=== PATIENT | male | born 1975 | race Caucasian/White ===

== ENCOUNTER 2024-06-12 16:50 | Emergency (ER) | payer BC, OTHER ==
[2024-06-12 16:54] VITALS: RESP 18
--- NOTE | 2024-06-12 17:05 | ED ---
Abdominal Pain HPI - General Source: patient, RN notes reviewed, old records reviewed Mode of arrival: ambulatory Limitations: no limitations - History of Present Illness MD Complaint: abdominal pain -: days(s) Location: RLQ Radiation: RLQ Migration to: RLQ Severity scale (1-10): 7 Quality: stabbing, sharp Improves With: nothing Worsens With: nothing Associated Symptoms: nausea Treatments Prior to Arrival: other (0) <David Abdi - Last Filed: 06/12/24 19:30> <David Nelson - Last Filed: 06/13/24 16:01> - General Chief Complaint: Abdominal Pain Stated Complaint: Abd pain Time Seen by Provider: 06/12/24 17:03 - History of Present Illness Initial Comments: This is a 48 male to the ER for evaluation of abdominal pain. Patient comes in with periumbilical right lower quadrant abdominal pain severe. Patient having symptoms that started last night persistently worse unable to have a bowel movement. Positive nausea no vomiting has not eaten was able to drink water today. He does feel feverish and sweaty (David Abdi) - Related Data Home Medications Medication Instructions Recorded Confirmed Albuterol Inhaler [Ventolin Hfa 2 puff INHALATION RT-Q4H PRN 06/12/24 06/12/24 Inhaler] Albuterol Nebulized [Ventolin 2.5 mg INHALATION RT-Q4H PRN 06/12/24 06/12/24 Nebulized] Atorvastatin [Lipitor] 20 mg PO DAILY 06/12/24 06/12/24 Losartan/Hydrochlorothiazide 1 tab PO DAILY 06/12/24 06/12/24 [Losartan-Hctz 100-25 mg Tab] Metoprolol Succinate (ER) [Toprol 50 mg PO DAILY 06/12/24 06/12/24 Xl] Previous Rx's Medication Instructions Recorded Levofloxacin [Levaquin] 750 mg PO DAILY #10 tab 06/13/24 metroNIDAZOLE [Flagyl] 500 mg PO TID #30 tab 06/13/24 Allergies Allergy/AdvReac Type Severity Reaction Status Date / Time vancomycin AdvReac Severe Rash/Hives- Verified 06/12/24 19:33 Itch all over hydrocodone bitartrate AdvReac Nausea Verified 06/12/24 19:33 [From [facility]] Penicillins AdvReac Sob-Throat Verified 06/12/24 19:33 closed Review of Systems ROS Other: All systems not noted in ROS Statement are negative. <David Abdi - Last Filed: 06/12/24 19:30> ROS Other: All systems not noted in ROS Statement are negative. <David Nelson - Last Filed: 06/13/24 16:01> ROS Statement: Those systems with pertinent positive or pertinent negative responses have been documented in the HPI. Past Medical History Past Medical History: Hyperlipidemia, Hypertension, Musculoskeletal Disorder, Sleep Apnea/CPAP/BIPAP Additional Past Medical History / Comment(s): SLEEP APNEA BUT DOESN'T USE C-PAP OR BI-PAP, CHRONIC BACK PAIN- HX SPINA BIFIDA- MISSING A VERTEBRAE, RECENT FX LEFT WRIST-FELL OFF FLAT BED TRUCK & HEARD WRIST SNAP- HAS SHOULDER SLING IMMOBILIZER ON WITH SPLINT History of Any Multi-Drug Resistant Organisms: None Reported Past Surgical History: Orthopedic Surgery Additional Past Surgical History / Comment(s): left arm surgery Past Anesthesia/Blood Transfusion Reactions: Postoperative Nausea & Vomiting (PONV) Past Psychological History: Anxiety Smoking Status: Never smoker Past Alcohol Use History: Occasional Past Drug Use History: None Reported - Past Family History Mother Family Medical History: Diabetes Mellitus, Hyperlipidemia, Hypertension Father Family Medical History: Diabetes Mellitus, Hyperlipidemia, Hypertension <David Abdi - Last Filed: 06/12/24 19:30> General Exam Limitations: no limitations General appearance: alert, in no apparent distress Head exam: Present: atraumatic, normocephalic, normal inspection Eye exam: Present: normal appearance, PERRL, EOMI. Absent: scleral icterus, conjunctival injection, periorbital swelling ENT exam: Present: normal exam, mucous membranes moist Neck exam: Present: normal inspection. Absent: tenderness, meningismus, lymphadenopathy Respiratory exam: Present: normal lung sounds bilaterally. Absent: respiratory distress, wheezes, rales, rhonchi, stridor Cardiovascular Exam: Present: regular rate, normal rhythm, normal heart sounds. Absent: systolic murmur, diastolic murmur, rubs, gallop, clicks GI/Abdominal exam: Present: soft, normal bowel sounds. Absent: distended, tenderness, guarding, rebound, rigid Extremities exam: Present: normal inspection, full ROM, normal capillary refill. Absent: tenderness, pedal edema, joint swelling, calf tenderness Back exam: Present: normal inspection Neurological exam: Present: alert, oriented X3, CN II-XII intact Psychiatric exam: Present: normal affect, normal mood Skin exam: Present: warm, dry, intact, normal color. Absent: rash <David Abdi - Last Filed: 06/12/24 19:30> Course <JinDavid B - Last Filed: 06/12/24 19:30> Vital Signs 06/12/24 06/12/24 06/12/24 16:51 18:15 19:41 Temperature 98.8 F 98.4 F Pulse Rate 113 H 89 78 Respiratory 18 18 18 Rate Blood Pressure 151/83 123/69 124/75 O2 Sat by Pulse 99 97 100 Oximetry - Reevaluation(s) Reevaluation #1: 06/12/24 17:40 Medical records reviewed (XochitlDavid osuna) Reevaluation #4: Was pt. sent in by a medical professional or institution (, PA, [facility], urgent care, hospital, or care home...) When possible be specific @ -no Did you speak to anyone other than the patient for history (EMS, parent, family, police, friend...)? What history was obtained from this source @ -no Did you review nursing and triage notes (agree or disagree)? Why? @ -agree Are old charts reviewed (outside hosp., previous admission, EMS record, old EKG, old radiological studies, urgent care reports/EKG's, care home records)? Report findings @ -yes Differential Diagnosis (chest pain, altered mental status, abdominal pain women, abdominal pain men, vaginal bleeding, weakness, fever, dyspnea, syncope, headache, dizziness, GI bleed, back pain, seizure, CVA, palpatations, mental health, musculoskeletal)? @ -prior EKG interpreted by me (3pts min.). @ -yes X-rays interpreted by me (1pt min.). @ -yes negative for acute disease CT interpreted by me (1pt min.). @ -no U/S interpreted by me (1pt. min.). @ -no What testing was considered but not performed or refused? (CT, X-rays, U/S, labs)? Why? @ -none What meds were considered but not given or refused? Why? @ -none Did you discuss the management of the patient with other professionals (professionals i.e. , PA, [facility], lab, RT, psych nurse, social media analyst, jack prizer, teacher, ethics officer, child welfare caseworker)? Give summary @ -no Was smoking cessation discussed for >3mins.? @ -no Was critical care preformed (if so, how long)? @ -no Were there social determinants of health that impacted care today? How? (Homelessness, low income, unemployed, alcoholism, drug addiction, tr ansportation, low edu. Level, literacy, decrease access to med. care, halfway, rehab)? @ -none Was there de-escalation of care discussed even if they declined (Discuss DNR or withdrawal of care, Hospice)? DNR status @ -no What co-morbidities impacted this encounter? (DM, HTN, Smoking, COPD, CAD, Canc er, CVA, ARF, Chemo, Hep., AIDS, mental health diagnosis, sleep apnea, morbid obesity)? @ -none Was patient admitted / discharged? Hospital course, mention meds given and route, prescriptions, significant lab abnormalities, going to OR and other pertinent info. @ - Undiagnosed new problem with uncertain prognosis? @ -no Drug Therapy requiring intensive monitoring for toxicity (Heparin, Nitro, Insulin, Cardizem)? @ -no Were any procedures done? @ -no Diagnosis/symptom? @ - Acute, or Chronic, or Acute on Chronic? @ -Acute Uncomplicated (without systemic symptoms) or Complicated (systemic symptoms)? @ -Complicated Side effects of treatment? @ -no Exacerbation, Progression, or Severe Exacerbation? @ -exacerbation Poses a threat to life or bodily function? How? (Chest pain, [place], [place], pneumonia, PE, COPD, DKA, ARF, appy, cholecystitis, CVA, Diverticulitis, Homicidal, Suicidal, threat to staff... and all critical care pts) @ -yes (David Abdi) Reevaluation #5: Differential Abdominal Pain Men: Appendicitis, cholecystitis, diverticulosis, ischemic bowel, pancreatitis, hepatitis, UTI, gastroenteritis, AAA, incarcerated hernia, bowel obstruction, constipation, inflammatory bowel, hepatitis, peptic ulcer disease, splenic infarction, perforated viscus, testicular torsion, this is not meant to be an all-inclusive list (David Abdi) Medical Decision Making - Lab Data Result diagrams: 06/12/24 17:35 06/12/24 17:35 <David Abdi - Last Filed: 06/12/24 19:30> - Lab Data Result diagrams: 06/12/24 17:35 06/12/24 17:35 <David Nelson - Last Filed: 06/13/24 16:01> - Lab Data Lab Results 06/12/24 06/12/24 06/12/24 Range/Units 17:35 17:35 17:35 WBC 14.40 H (4.50-10.00) 10*3/uL RBC 4.70 (4.40-5.60) 10*6/uL Hgb 16.0 (13.0-17.0) g/dL Hct 43.8 (39.6-50.0) % MCV 93.2 (80.0-97.0) fL MCH 34.0 H (27.0-32.0) pg MCHC 36.5 (32.0-37.0) g/dL Plt Count 247 (140-440) 10*3/uL MPV 10.1 (9.5-12.2) fL Immature Gran % (Auto) 0.3 % Neutrophils % 90.1 % Lymphocytes % 7.2 % Monocytes % 1.9 % Eosinophils % 0.1 % Basophils % 0.4 % Immature Gran # 0.05 H (0.00-0.04) 10*3/uL Neutrophils # 12.96 H (1.80-7.70) 10*3/uL Lymphocytes # 1.04 (0.90-5.00) 10*3/uL Monocytes # 0.28 (0.20-1.00) 10*3/uL Eosinophils # 0.01 L (0.04-0.35) 10*3/uL Basophils # 0.06 (0.00-0.10) 10*3/uL PT 10.9 (10.0-12.5) sec INR 1.0 (<1.2) APTT 24.5 (22.0-30.0) sec Sodium 131 L (137-145) mmol/L Potassium 4.8 (3.5-5.1) mmol/L Chloride 96 L (98-107) mmol/L Carbon Dioxide 23 (22-30) mmol/L Anion Gap 12 mmol/L BUN 27 H (9-20) mg/dL Creatinine 0.67 (0.66-1.25) mg/dL Est GFR (CKD-EPI)AfAm >90 (>60 ml/min/1.73 sqM) Est GFR (CKD-EPI)NonAf >90 (>60 ml/min/1.73 sqM) Glucose 171 H (74-99) mg/dL Plasma Lactic Acid Hemant (0.7-2.0) mmol/L Calcium 9.8 (8.4-10.2) mg/dL Total Bilirubin 2.2 H (0.2-1.3) mg/dL AST 63 H (17-59) U/L ALT 83 H (4-49) U/L Alkaline Phosphatase 81 (38-126) U/L Total Protein 8.7 H (6.3-8.2) g/dL Albumin 4.9 (3.5-5.0) g/dL Amylase 53 (30-110) U/L Lipase 165 (23-300) U/L 06/12/24 Range/Units 17:35 WBC (4.50-10.00) 10*3/uL RBC (4.40-5.60) 10*6/uL Hgb (13.0-17.0) g/dL Hct (39.6-50.0) % MCV (80.0-97.0) fL MCH (27.0-32.0) pg MCHC (32.0-37.0) g/dL Plt Count (140-440) 10*3/uL MPV (9.5-12.2) fL Immature Gran % (Auto) % Neutrophils % % Lymphocytes % % Monocytes % % Eosinophils % % Basophils % % Immature Gran # (0.00-0.04) 10*3/uL Neutrophils # (1.80-7.70) 10*3/uL Lymphocytes # (0.90-5.00) 10*3/uL Monocytes # (0.20-1.00) 10*3/uL Eosinophils # (0.04-0.35) 10*3/uL Basophils # (0.00-0.10) 10*3/uL PT (10.0-12.5) sec INR (<1.2) APTT (22.0-30.0) sec Sodium (137-145) mmol/L Potassium (3.5-5.1) mmol/L Chloride (98-107) mmol/L Carbon Dioxide (22-30) mmol/L Anion Gap mmol/L BUN (9-20) mg/dL Creatinine (0.66-1.25) mg/dL Est GFR (CKD-EPI)AfAm (>60 ml/min/1.73 sqM) Est GFR (CKD-EPI)NonAf (>60 ml/min/1.73 sqM) Glucose (74-99) mg/dL Plasma Lactic Acid Hemant 1.3 (0.7-2.0) mmol/L Calcium (8.4-10.2) mg/dL Total Bilirubin (0.2-1.3) mg/dL AST (17-59) U/L ALT (4-49) U/L Alkaline Phosphatase (38-126) U/L Total Protein (6.3-8.2) g/dL Albumin (3.5-5.0) g/dL Amylase (30-110) U/L Lipase (23-300) U/L Disposition Is patient prescribed a controlled substance at d/c from ED?: No Time of Disposition: 19:30 <David Abdi - Last Filed: 06/12/24 19:30> <David Nelson - Last Filed: 06/13/24 16:01> Clinical Impression: Abdominal pain, Diverticulitis Disposition: HOME SELF-CARE Condition: Good Instructions (If sedation given, give patient instructions): Diverticulitis (ED) Prescriptions: metroNIDAZOLE [Flagyl] 500 mg PO TID #30 tab Levofloxacin [Levaquin] 750 mg PO DAILY #10 tab Referrals: Oz Brandon MD [Primary Care Provider] - 1-2 days
[2024-06-12] MEDS: KETOROLAC 15 MG/ML 1 ML VIAL IVP STA (17:38)
[2024-06-12] MEDS: SODIUM CHLORIDE 0.9% 1,000 ML IV ONE (17:39)
[2024-06-12] MEDS: MORPHINE SULFATE 4 MG/ML SYRINGE IVP STA (17:39)
[2024-06-12 17:45] LABS: Basophils # (A) 0.06 10*3/uL (0.00-0.10); Basophils % (A) 0.4 %; Eosinophils # (A) 0.01 10*3/uL (0.04-0.35); Eosinophils % (A) 0.1 %; HCT 43.8 % (39.6-50.0); Lymphocytes # (A) 1.04 10*3/uL (0.90-5.00); Lymphocytes % (A) 7.2 %; MCHC 36.5 g/dL (32.0-37.0); MCV 93.2 fL (80.0-97.0); Mean Platelet Volume 10.1 fL (9.5-12.2); Monocytes # (A) 0.28 10*3/uL (0.20-1.00); Monocytes % (A) 1.9 %; Neutrophils # (A) 12.96 10*3/uL (1.80-7.70); Neutrophils % (A) 90.1 %; Platelet Count 247 10*3/uL (140-440); RDW 11.2 % (11.5-14.5)
[2024-06-12] MEDS: ONDANSETRON 4 MG/2 ML VIAL IVP STA (17:57)
[2024-06-12 18:04] LABS: Partial Thromboplastin Time 24.5 sec (22.0-30.0); Prothrombin Time 10.9 sec (10.0-12.5)
[2024-06-12 18:13] LABS: ALT 83 U/L (4-49); African American GFR (CKD) >90 (>60 ml/min/1.73 sqM); Albumin 4.9 g/dL (3.5-5.0); Amylase 53 U/L (30-110); Anion Gap 12 mmol/L; Blood Urea Nitrogen 27 mg/dL (9-20); Calcium 9.8 mg/dL (8.4-10.2); Carbon Dioxide 23 mmol/L (22-30); Chloride 96 mmol/L (98-107); Glucose 171 mg/dL (74-99); Lipase 165 U/L (23-300); Non-African American GFR(CKD) >90 (>60 ml/min/1.73 sqM); Sodium 131 mmol/L (137-145); Total Bilirubin 2.2 mg/dL (0.2-1.3); Total Protein 8.7 g/dL (6.3-8.2)
[2024-06-12 18:16] LABS: AST 63 U/L (17-59); Alkaline Phosphatase 81 U/L (38-126); Potassium 4.8 mmol/L (3.5-5.1)
--- NOTE | 2024-06-12 19:03 | CT ---
EXAMINATION TYPE: CT abdomen pelvis w con CT DLP: 1425 mGycm, Automated exposure control for dose reduction was used. DATE OF EXAM: 06/12/2024 6:34 PM COMPARISON: None CLINICAL INDICATION:Male, 48 years old with history of pain; lower abdominal pain TECHNIQUE: Standard CT of the abdomen and pelvis following the administration of 100 cc of Isovue 3 00 IV contrast material. Coronal and sagittal reformats were performed. FINDINGS: LOWER CHEST: Unremarkable ABDOMEN LIVER: Diffusely hypoattenuating parenchyma. Mildly enlarged measuring 19.6 cm in CC dimension. GALLBLADDER AND BILE DUCTS: Unremarkable. PANCREAS: Unremarkable. SPLEEN: Mildly enlarged measuring 15.1 cm in CC dimension. ADRENAL GLANDS: Unremarkable. KIDNEYS AND URETERS: No evidence of hydronephrosis or renal calculus. The kidneys enhance symmetrical ly. Contrast is demonstrated within both collecting systems on the delayed phase. PELVIS BLADDER: Unremarkable REPRODUCTIVE: Unremarkable. ABDOMEN & PELVIS STOMACH AND BOWEL: Stomach and duodenum are unremarkable. There is short segment bowel wall thickenin g with diverticulosis of the sigmoid colon and surrounding inflammatory changes. No organized fluid c ollection. This is just above the bladder dome. The appendix is within normal limits. No evidence of bowel obstruction. PERITONEUM: No evidence of pneumoperitoneum or free fluid. VASCULATURE: No evidence of aortic aneurysm. Couple of left-sided pelvic phleboliths. MUSCULOSKELETAL: No acute osseous abnormalities. No spondylolisthesis however there is bilateral pars defects L5-S1. LYMPH NODES: No evidence for lymphadenopathy. SOFT TISSUE/ABDOMINAL WALL: Tiny fat filled umbilical hernia. IMPRESSION: 1. Uncomplicated acute sigmoid diverticulitis. 2. Mild hepatosplenomegaly. 3. Hepatic steatosis. [facility], , 06/12/2024 7:01 PM
[2024-06-12] MEDS: metroNIDAZOLE 500 MG TAB PO STA (19:37)
[2024-06-12] MEDS: CIPROFLOXACIN HCL 500 MG TAB PO STA (19:37)
[2024-06-12] MEDS: ACET/COD 300 MG/30 MG STARTER PACK 6 TAB BTL PO STA (19:38)
[2024-06-12] MEDS: traMADol 50 MG STARTER PACK 3 TAB BTL PO STA (19:39)
[2024-06-12] MEDS: ONDANSETRON 4 MG ODT STARTER PACK 2 TAB BTL PO STA (19:39)
[2024-06-12 19:42] VITALS: BP 124/75; PULSE 78; TEMP 98.4
== END 2024-06-12 19:41 | disposition home or self-care (01) ==
LOC: EC 16:50
DX: K57.32 Diverticulitis of large intestine without perforation or abscess without bleeding (principal); R10.31 Right lower quadrant pain; Z88.0 Allergy status to penicillin; Z88.1 Allergy status to other antibiotic agents; Z88.5 Allergy status to narcotic agent
CPT/HCPCS: 36415; 80053; 82150; 83605; 83690; 85025; 85610; 85730; 74177; 99284; 96374; 96375; 96361 ×2; J2270; J1885; S0119; Q9967